=== PATIENT | female | born 1950 | race Caucasian/White ===

== ENCOUNTER → 2024-09-13 | Outpatient (CLI) | payer MEDICARE, MEDICAID, SELFPAY ==
--- NOTE | 2024-09-13 10:04 | XR_ITS ---
Examination: PA lateral chest 2 views Technique: Upright PA lateral chest 2 views Exam date and time: September 13, 2024 1026 hrs. Comparison May 28, 2023 Indications: Coughing shortness of breath beginning one week ago. Findings: Moderate enlargement cardiac contour. Adequate position cardiac leads. Moderate pulmonary vascular redistribution Subtle edema at the lung bases No lobar pneumonia Impression: Mild heart failure.
== END | disposition home or self-care (01) ==
PROVIDERS: PCP Nurse Practitioner Family; Referring Provider Nurse Practitioner Family; Visit Provider Nurse Practitioner Family
DX: I50.89 Other heart failure (principal)
CPT/HCPCS: 71046